=== PATIENT | female | born 1985 ===

== ENCOUNTER 2018-08-01 10:27 | Outpatient (CLI) | payer OTHER | END 2018-08-01 10:30 | disposition home or self-care (01) | LOC: SONOGRAMA 10:27 | DX: R10.2 Pelvic and perineal pain (principal); N64.4 Mastodynia ==

== ENCOUNTER 2019-05-31 09:44 | Outpatient (CLI) | payer OTHER | END 2019-05-31 09:49 | disposition home or self-care (01) | LOC: SONOGRAMA 09:44 | DX: M54.2 Cervicalgia (principal); M54.6 Pain in thoracic spine; G56.03 Carpal tunnel syndrome, bilateral upper limbs ==